=== PATIENT | female | born 1980 ===

== ENCOUNTER 2017-12-20 15:54 | Emergency (ER) | payer OTHER ==
[2017-12-20 16:05] VITALS: TEMP 97.5
--- NOTE | 2017-12-20 16:48 | C.PDOC ---
History Of Present Illness 37 y/o female presents to the ED for evaluation of left-sided neck pain gradually developing since yesterday. Pain is described as localized over the neck, and worsens with head rotation. Denies any direct trauma or known injury, denies recent illness, headache, fever, dizziness, visual changes, focal deficits, denies weakness, sensory or vascular deficits to B/L UEs. Ambulate to Ed for evaluation, not in any apparent distress. Time Seen by Provider: 12/20/17 16:17 Chief Complaint (Nursing): Back Pain History Per: Patient History/Exam Limitations: no limitations Onset/Duration Of Symptoms: Days (x2) Current Symptoms Are (Timing): Still Present Past Medical History Reviewed: Historical Data, Nursing Documentation, Vital Signs Vital Signs: Last Vital Signs Temp 97.5 F L 12/20/17 16:01 Pulse 88 12/20/17 16:01 Resp 19 12/20/17 16:01 BP 121/83 12/20/17 16:01 Pulse Ox 98 12/20/17 16:01 - Medical History PMH: Migraine Surgical History: No Surg Hx Family History: States: Unknown Family Hx - Social History Hx Tobacco Use: No Hx Alcohol Use: Yes Hx Substance Use: No - Immunization History Hx Tetanus Toxoid Vaccination: No Hx Influenza Vaccination: No Hx Pneumococcal Vaccination: No Review Of Systems Except As Marked, All Systems Reviewed And Found Negative. Constitutional: Negative for: Fever, Chills ENT: Negative for: Nose Congestion Respiratory: Negative for: Cough, Shortness of Breath Gastrointestinal: Negative for: Vomiting Musculoskeletal: Positive for: Neck Pain Neurological: Negative for: Weakness, Numbness, Incoordination, Headache, Dizziness Physical Exam - Physical Exam Appears: Well, Non-toxic, No Acute Distress Skin: Normal Color, Warm, Dry, No Rash, No Ecchymosis Head: Normacephalic Eye(s): bilateral: PERRL Ear(s): Bilateral: Normal Nose: No Flaring, No Discharge, No Deformity, No Tenderness Oral Mucosa: Moist Tongue: Normal Appearing Lips: Normal Appearing Throat: No Erythema, No Drooling Neck: Normal ROM (mild discomfort to ipsilateral side ( left)), Trachea Midline, No Midline Cervical Tenderness, Paracervical Tenderness (Left sided cervical tenderness over occpital area extend down to Left upper back with palpable muscle spasm. No midine tenderness, no skin changes.), No Step Off Deformity, Supple Chest: Symmetrical, No Deformity, No Tenderness Cardiovascular: Rhythm Regular, No Murmur, No JVD Respiratory: No Decreased Breath Sounds, No Accessory Muscle Use, No Rales, No R honchi, No Stridor, No Wheezing Back: No Vertebral Tenderness, No Paraspinal Tenderness Extremity: Normal ROM, No Tenderness, No Deformity, No Swelling Extremity: Bilateral: Atraumatic Neurological/Psych: Oriented x3, Normal Speech, Normal Motor, Normal Sensation, Normal Reflexes ED Course And Treatment O2 Sat by Pulse Oximetry: 98 (RA) Pulse Ox Interpretation: Normal Progress Note: Tramadol and motrin given for pain control. On re-eval, pt is afebrile, hemodynamicaly stable. Non-toxic. Ambulatory in ED with stable gait. Head: AT/NC. ENT: No acute findings. neck: SUpple, (-) midline tenderness, (-) JVD. Neuorlogicaly intact. Pt has clinical findings c/w Left sided cervical strain. Pt advised. rfef. to F/u with PMD in 2-3 days for re-eval. return if any new changes. Disposition Counseled Patient/Family Regarding: Diagnosis, Need For Followup, Rx Given - Disposition Referrals: [facility] [Outside] Disposition: HOME/ ROUTINE Disposition Time: 16:46 Condition: STABLE Additional Instructions: Light duty to neck area, keep head up take medication as prescribed Follow up with PMD in 2-3 days for re-evaluation. return to ED if any worsening or new changes. Prescriptions: Methocarbamol [Robaxin] 500 mg PO TID #14 tab traMADol [Ultram] 50 mg PO TID #7 tab Instructions: Cervical Muscle Strain Forms: [employer] (Spanish), Work Excuse - Clinical Impression Clinical Impression: Cervical strain - PA / EMERGENCY MEDICAL TECH / Resident Statement MD/DO has reviewed & agrees with the documentation as recorded. - Scribe Statement The provider has reviewed the documentation as recorded by the Scribe (Kennedi Eden) All medical record entries made by the Scribe were at my direction and personally dictated by me. I have reviewed the chart and agree that the record accurately reflects my personal performance of the history, physical exam, medical decision making, and the department course for this patient. I have also personally directed, reviewed, and agree with the discharge instructions and disposition.
[2017-12-20 17:13] VITALS: BP 120/74; PULSE 82; RESP 18
[2017-12-20 21:47] VITALS: O2SAT 98
== END 2017-12-20 17:13 | disposition home or self-care (01) ==
LOC: C.ER 15:54
DX: S16.1XXA Strain of muscle, fascia and tendon at neck level, initial encounter (principal); X58.XXXA Exposure to other specified factors, initial encounter